=== PATIENT | female | born 1940 | race Caucasian/White ===

== ENCOUNTER 2016-10-26 08:13 | Inpatient (IN) ==
[2016-10-25 12:18] LABS: Basophils # (Auto) 0 K/mcL (0.0-0.3); Basophils % (Auto) 0.5 % (0.0-2.0); Eosinophils # (Auto) 0.1 K/mcL (0.0-0.7); Eosinophils % (Auto) 0.8 % (0.0-7.0); Granulocytes % (Auto) 69.5 % (38.0-78.0); Lymphocytes # (Auto) 1.8 K/mcL (1.5-4.8); Lymphocytes % (Auto) 24.2 % (15.5-49.0); Mean Cell Volume 92.3 fL (80.0-100.0); Mean Corpuscular HGB Conc 34.3 g/dL (31.0-36.0); Mean Corpuscular Hemoglobin 31.6 pg (26.0-34.0); Monocytes # (Auto) 0.4 K/mcL (0.1-0.9); Platelet Count 252 K/mcL (140-440); Red Cell Distribution Width 13.8 % (11.5-14.5)
[2016-10-25 12:35] LABS: Blood Urea Nitrogen 17 mg/dl (8-23)
[2016-10-25 13:05] LABS: Appearance,Urine CLEAR; Bilirubin,Urine NEG (NEG); Color,Urine YELLOW; Glucose,Urine (UA) NEGATIVE (NEG); Leukocyte Esterase,Urine NEG /uL (NEG); Nitrate,Urine NEG (NEG); Protein,Urine NEG (NEG); Specific Gravity,Urine 1.012 (1.000-1.035); Urine Blood NEG mg/dL (<0.03); Urobilinogen,Urine NEG (NEG)
[~2016-10-26 08:13] MED LIST: 0.9 % SODIUM CHLORIDE 250 ML IV SCH; PREGABALIN 75 MG CAPSULE PO SCH; ceFAZolin 1 GM VIAL IV SCH; oxyCODONE 10 MG TAB.ER.12H PO SCH
[2016-10-26] MEDS ORDERED: LIDOCAINE HCL/PF 100 MG/5 ML SYRINGE IV ONE (12:05)
[2016-10-26] MEDS ORDERED: PROPOFOL 200 MG/20 ML VIAL IV ONE (12:05)
[2016-10-26] MEDS ORDERED: ONDANSETRON 4 MG/2 ML VIAL IV ONE (12:05)
[2016-10-26] MEDS ORDERED: TRANEXAMIC ACID 1,000 MG/10 ML VIAL IV ONE ×2 (12:05→13:27)
[2016-10-26] MEDS ORDERED: KETAMINE 100 MG/ML ML IV ONE (12:05)
[2016-10-26] MEDS ORDERED: GENTAMICIN SULFATE 800 MG/20 ML VIAL IR ONE (12:28)
[2016-10-26] MEDS ORDERED: METHOCARBAMOL 1,000 MG/10 ML VIAL IV PRN (13:03)
[2016-10-26] MEDS ORDERED: diphenhydrAMINE 50 MG/ML VIAL IV PRN (13:03)
[2016-10-26] MEDS ORDERED: MEPERIDINE 25 MG/ML SYRINGE IV PRN (13:03)
[2016-10-26] MEDS ORDERED: IPRATROPIUM/ALBUTEROL 3 ML AMPUL.NEB NEB PRN (13:03)
[2016-10-26] MEDS ORDERED: ONDANSETRON 4 MG/2 ML VIAL IV PRN ×2 (13:03→13:27)
[2016-10-26] MEDS ORDERED: FLUMAZENIL 0.1 MG/ML ML IV PRN (13:03)
[2016-10-26] MEDS ORDERED: BENZOCAINE/MENTHOL 1 LOZENGE PO PRN ×2 (13:03→13:27)
[2016-10-26] MEDS ORDERED: HYDROmorphone 2 MG/ML SYRINGE IV PRN ×2 (13:03→13:27)
[2016-10-26] MEDS ORDERED: fentaNYL 100 MCG/2 ML VIAL IV PRN (13:03)
[2016-10-26] MEDS ORDERED: NALOXONE HCL 0.4 MG/ML VIAL IV PRN (13:03)
[2016-10-26] MEDS ORDERED: LACTATED RINGERS 250 ML IV PRN (13:03)
[2016-10-26] MEDS ORDERED: PROMETHAZINE 25 MG/ML VIAL IV PRN (13:03)
[2016-10-26] MEDS ORDERED: LACTATED RINGERS 1,000 ML IV SCH (13:15)
--- NOTE | 2016-10-26 13:26 | Brief Operative Note ---
Date of procedure: 10/26/16 Pre-op diagnosis: left hip oa Post-op diagnosis: same Procedure: left total hip arthroplasty Grafts/Implants: Yes Anesthesia: spinal Complications: none Surgeon: Glenn Santos Etl Data Architect: Josue Harvey Estimated blood loss (cc): 100 Specimens Removed/Pathology: none sent Condition: stable Disposition: PACU
[2016-10-26] MEDS ORDERED: BISACODYL 10 MG SUPP.RECT PR PRN (13:27)
[2016-10-26] MEDS ORDERED: MAGNESIUM HYDROXIDE 30 ML ORAL.SUSP PO PRN (13:27)
[2016-10-26] MEDS ORDERED: METHOCARBAMOL 750 MG TABLET PO PRN (13:27)
[2016-10-26] MEDS ORDERED: FLEETS ADULT ENEMA PR PRN (13:27)
[2016-10-26] MEDS ORDERED: ONDANSETRON ODT 4 MG TABLET SL PRN (13:27)
[2016-10-26] MEDS ORDERED: POLYETHYLENE GLYCOL 3350 17 GM PACKET PO PRN (13:27)
[2016-10-26] MEDS ORDERED: ePHEDrine 50 MG/ML AMPUL IV ONE (13:54)
--- NOTE | 2016-10-26 14:05 | Operative Note ---
DATE OF OPERATION: 10/26/2016 PREOPERATIVE DIAGNOSIS: Degenerative joint disease, left hip. POSTOPERATIVE DIGNOSIS: Degenerative joint disease, left hip. PROCEDURE: Left total hip arthroplasty. SURGEON: Layo Santos M.D. MATRIX SUPERVISOR SURGEON: Josue Harvey PA-C. ANESTHESIA: Spinal with LMA assist. ESTIMATED BLOOD LOSS: 100 mL. COMPLICATIONS: None noted. SPECIMENS REMOVED: None. DRAINS: None. IMPLANTS: DePuy [place] Hole Eliminator PS; DePuy Smithers Gription acetabular shell 48 mm; DePuy Smithers Altrx polyethylene acetabular liner 32 x 48; DePuy Tri-Lock BPS femoral stem size 2 standard; DePuy Biolox delta ceramic femoral head +5 mm, 32 diameter. INDICATIONS: The patient has had a longstanding history of worsening pain in the hip that has failed conservative treatment. Radiographs have confirmed advanced degenerative joint disease. After a long discussion about treatment options, the patient elected to proceed with a hip arthroplasty. The risks and benefits were discussed with the patient in detail including, but not limited to, the risks of anesthesia, problems with the heart or lungs related to anesthesia, infection, compromise or injury to the nerves and blood vessels, deep venous thrombosis, pulmonary embolism, pneumonia, continued pain after surgery, worsening pain or symptoms after surgery, swelling, loss of motion, instability, leg length discrepancy, and need for repeat surgery. DESCRIPTION OF PROCEDURE: The patient was seen in pre-anesthesia waiting room where all questions were answered and the correct side and site were identified and marked. The patient was then brought to the operating room and administered the anesthetic and given pre-operative antibiotics. A time-out was then called. The patient was placed in the lateral decubitus position with all prominences well-padded using the [place] frame and the extremity was prepped and draped in the usual sterile fashion. Anesthesia gave the patient 1 gm of tranexamic acid via an intravenous route. A standard posterior approach was made. We dissected through the skin and subcutaneous tissue to the deep fascia. The deep fascia was split in line with the incision and a Charnley retractor was placed. We exposed, tagged, and incised the short external rotators and piriformis tendon and retracted them posteriorly to help protect the sciatic nerve which was palpated throughout the case. We then performed a T-capsulotomy and tagged the capsule edges. Prior to dislocating the hip, we set a length and offset gauge from a Steinmann pin in the iliac wing to a joyce on the greater trochanter. The hip was then dislocated and a femoral neck osteotomy was performed to the pre-surgical templated level off the lesser trochanter. The head was removed and sized. We next turned our attention to the acetabulum. Retractors were placed for optimal visualization. A complete labral excision was performed. The capsule was preserved for later closure. We began reaming using anatomic landmarks with the DePuy Smithers acetabular system. We medialized the cup and reamed up to provide good fill and coverage of the trial. When the trial was stable and appropriately positioned with approximately 20 degrees of anteversion and 45 degrees of abduction, we impacted the DePuy Smithers cup and placed a cancellous screw in the posterior-superior quadrant. Osteophytes were removed from around the shell. We placed the trial liner and turned our attention to the femur. We placed retractors for visualization, internally rotated the femur, and established intramedullary access. We broached using the DePuy Tri-Lock stem to a stable platform medial, lateral, and rotationally with the appropriate version. We then performed a calcar reaming off the broach. Trials were then placed and optimized for leg length and stability. We used the leg length and offset guide to confirm our trials. Best stability, length, and offset characteristics were obtained with these sizes. We removed all trials and impacted the polyethylene acetabular liner in a standard fashion after a thorough irrigation. We then impacted the femoral stem to its broached location and placed the head. Final reduction was performed. Again, good stability, leg length, and offset characteristics were noted. We irrigated with three liters of antibiotic saline. We closed the capsule with #2 FiberWire. We placed a deep drain and closed the fascia with a combination of looped #0 Maxon and #0 Vicryl. We closed the subcutaneous tissue and skin in layers out to gil in the skin. A sterile pressure dressing and abduction wedge was applied. All needle and sponge counts were correct. The patient was transferred to the recovery room in stable condition. LOLA:jacques Job ID: [id number] Doc ID: [id number] Layo Santos MD
[2016-10-26] MEDS: 0.9 % SODIUM CHLORIDE 1,000 ML IV SCH ×3 (14:19→22:56)
[2016-10-26] MEDS: 0.9 % SODIUM CHLORIDE 10 ML SYRINGE IV SCH ×2 (14:19→20:47)
--- NOTE | 2016-10-26 14:50 | XRay Report ---
CLINICAL INFORMATION: Postop total hip prostheses COMPARISON: None. FINDINGS: Left total hip prostheses is in near-anatomic alignment with perhaps slightly excess anteversion and lateral canting of the acetabular component. Soft tissues over the surgical site noted no osseous abnormality IMPRESSION: Left hip prostheses as described Interpreted and Authenticated by: Glenn Chavira 10/26/16
[2016-10-26] MEDS: KETOROLAC 15 MG/ML VIAL IV PRN (15:37)
[2016-10-26] MEDS: HYDROcodone/APAP 10/325MG TABLET PO PRN ×2 (18:25→22:25)
[2016-10-26] MEDS: ceFAZolin 1 GM VIAL IV SCH (19:21)
[2016-10-26] MEDS: ASPIRIN 325 MG ENTERIC COATED TABLET PO SCH (20:46)
[2016-10-26] MEDS: LISINOPRIL 20 MG TABLET PO SCH (20:46)
[2016-10-26] MEDS: DOCUSATE SODIUM 100 MG CAPSULE PO SCH (20:46)
[2016-10-26] MEDS: SENNOSIDES 1 TABLET PO SCH (20:46)
[2016-10-27] MEDS: HYDROcodone/APAP 10/325MG TABLET PO PRN ×4 (02:25→20:15)
[2016-10-27] MEDS: ceFAZolin 1 GM VIAL IV SCH (03:07)
[2016-10-27] MEDS: 0.9 % SODIUM CHLORIDE 1,000 ML IV SCH (04:30)
[2016-10-27] MEDS: 0.9 % SODIUM CHLORIDE 10 ML SYRINGE IV SCH ×3 (04:31→21:20)
--- NOTE | 2016-10-27 06:34 | Orthopedic Progress Note ---
Subjective Patient information: Note initiated : 10/27/16 at 6:33 am Service Date, if different from initiated Date: [] Patient: Keisha Bailey 75 y/o F admitted on 10/26/16 for Left Total Hip Arthroplasty. Chief Complaint: [] Interval history: doing ok. pain under control Objective Vital signs: Vital Signs Temp Pulse Resp BP Pulse Ox 10/27/16 04:54 95/60 10/27/16 03:26 98.5 F 77 14 98/45 93 10/27/16 00:00 99.2 F H 71 14 92/55 92 10/26/16 19:32 98.1 F 74 14 153/83 95 10/26/16 17:30 68 148/74 97 10/26/16 16:30 72 136/62 92 10/26/16 16:00 97.4 F 71 14 151/67 93 10/26/16 15:30 96.7 F L 74 16 130/67 96 10/26/16 15:15 96.5 F L 73 127/70 95 10/26/16 15:00 96.5 F L 69 14 141/70 10/26/16 14:45 96.3 F L 65 12 130/63 96 10/26/16 14:19 97.6 F 75 16 134/54 100 10/26/16 14:04 97.4 F 79 16 125/55 96 10/26/16 13:59 97.6 F 75 16 127/55 100 10/26/16 13:54 97.6 F 75 16 111/56 100 10/26/16 13:49 97.5 F 76 16 88/54 100 10/26/16 13:44 97.2 F 75 16 81/40 100 10/26/16 13:39 97.2 F 81 16 116/48 98 10/26/16 08:13 97.2 F 66 18 170/70 97 Intake and Output 10/26/16 10/27/16 10/27/16 21:59 05:59 13:59 Intake Total 2900 / 2900 1450 / 1450 Output Total 775 / 775 600 / 600 Balance 2125 / 2125 850 / 850 Intake: IV 1000 / 1000 Sodium Chloride 0.9% 1, 1000 / 1000 000 ml @ 125 mls/hr IV . Q8H [facility] Rx#:[id number] Oral 600 / 600 450 / 450 IV - Manual Only 2300 / 2300 Output: Urine Catheter Amount 775 / 775 200 / 200 Void Amount 400 / 400 Other: Meal Dinner Percent of Meal Consumed 100% Feeding Ability Independent Weight 130 lb 5 oz Intake & Output: Intake & Output 10/26/16 10/27/16 10/27/16 21:59 05:59 13:59 Intake Total 2900 / 2900 1450 / 1450 Output Total 775 / 775 600 / 600 Balance 2125 / 2125 850 / 850 Weight 130 lb 5 oz Intake: IV 1000 / 1000 Sodium Chloride 0.9% 1, 1000 / 1000 000 ml @ 125 mls/hr IV . Q8H [facility] Rx#:[id number] Oral 600 / 600 450 / 450 IV - Manual Only 2300 / 2300 Output: Urine Catheter Amount 775 / 775 200 / 200 Void Amount 400 / 400 Other: Meal Dinner Percent of Meal Consumed 100% Feeding Ability Independent Incision: Yes healing Incision clean and dry: Yes Dressing: Yes clean, Yes dry, Yes intact Weight bearing status: full Neurological exam IM: Yes alert, Yes normal gait, Yes oriented X3, Yes motor sensory intact, Yes neurovascular intact Extremities exam IM: No calf tenderness, Yes Foot pink and warm, Yes neurovascular intact - Labs CBC & BMP: 10/25/16 10:34 10/25/16 10:34 Labs: Orthopedic Labs 10/25/16 10:34 PT 12.9 INR 1.0 10/27/16 10/25/16 05:37 10:34 Hgb Pending 13.3 Hct Pending 38.7 Assessment and Plan (1) Hip osteoarthritis pod 1 s/p hugo pain control dvt prophylaxis PT d/c planning - home tomorrow if improving Status: Acute
--- NOTE | 2016-10-27 06:37 | Discharge Summary ---
Ortho Discharge - [facility] - Patient Instructions Diet: Regular Diet Activity: ambulate with assistive device, weight bearing as tolerated Total Hip Protocol: Follow activity instructions as provided by Physical Therapy. Dressing Care: May shower in 2 days - Problem Maintenance (1) Hip osteoarthritis Status: Acute - Follow Up Plan Disposition: Home, Self-Care Prognosis: Good Rehab Potential: Good I certify that the patient requires SNF services: No Overall status at discharge: patient is progressing back to baseline - Orders For Discharge Prescriptions: Aspirin [Ecotrin] 325 mg PO BID #60 Docusate Sodium [Colace] 100 mg PO BID #60 capsule HYDROcodone/APAP 10/325MG [[place] 10/325Mg] 1 - 2 tab PO Q4HP PRN #60 tablet PRN Reason: Pain
[2016-10-27] MEDS: DOCUSATE SODIUM 100 MG CAPSULE PO SCH ×2 (08:58→21:20)
[2016-10-27] MEDS: ASPIRIN 325 MG ENTERIC COATED TABLET PO SCH ×2 (08:58→21:20)
[2016-10-27] MEDS: KETOROLAC 15 MG/ML VIAL IV PRN (08:59)
[2016-10-27] MEDS: SENNOSIDES 1 TABLET PO SCH (21:20)
[2016-10-27] MEDS: LISINOPRIL 20 MG TABLET PO SCH (21:20)
[2016-10-28] MEDS: HYDROcodone/APAP 10/325MG TABLET PO PRN ×4 (05:11→18:41)
[2016-10-28] MEDS: 0.9 % SODIUM CHLORIDE 10 ML SYRINGE IV SCH ×4 (05:12→21:17)
--- NOTE | 2016-10-28 05:38 | Orthopedic Progress Note ---
Subjective Patient information: Note initiated : 10/28/16 at 5:36 am Service Date, if different from initiated Date: [] Patient: Keisha Bailey 75 y/o F admitted on 10/26/16 for Left Total Hip Arthroplasty. Chief Complaint: [] Interval history: doing ok. mobilizing Objective Vital signs: Vital Signs Temp Pulse Pulse Resp BP Pulse Ox 10/28/16 03:45 98.8 F 76 22 97/67 91 10/27/16 23:31 99.1 F H 82 22 95/60 91 10/27/16 19:51 98.7 F 79 22 96/48 93 10/27/16 16:00 99.3 F H 18 91/53 90 10/27/16 11:44 98.0 F 18 101/46 90 10/27/16 07:18 74 97 10/27/16 06:57 99.3 F H 18 97/63 91 Intake and Output 10/27/16 10/27/16 10/28/16 13:59 21:59 05:59 Intake Total 740 / 740 350 / 350 1100 / 1100 Output Total 500 / 500 775 / 775 725 / 725 Balance 240 / 240 -425 / -425 375 / 375 Intake: Oral 740 / 740 350 / 350 1100 / 1100 Output: Urine Catheter Amount 500 / 500 775 / 775 375 / 375 Void Amount 350 / 350 Uretheral (Lewis) 350 / 350 Other: Meal Breakfast Dinner Percent of Meal Consumed 100% 100% Weight 131 lb Patient Weight 10/28/16 05:59 Weight 131 lb Intake & Output: Intake & Output 10/27/16 10/27/16 10/28/16 13:59 21:59 05:59 Intake Total 740 / 740 350 / 350 1100 / 1100 Output Total 500 / 500 775 / 775 725 / 725 Balance 240 / 240 -425 / -425 375 / 375 Weight 131 lb Intake: Oral 740 / 740 350 / 350 1100 / 1100 Output: Urine Catheter Amount 500 / 500 775 / 775 375 / 375 Void Amount 350 / 350 Uretheral (Lewis) 350 / 350 Other: Meal Breakfast Dinner Percent of Meal Consumed 100% 100% Incision: Yes healing Incision clean and dry: Yes Dressing: Yes clean, Yes dry, Yes intact Weight bearing status: full Neurological exam IM: Yes abnormal gait, Yes alert, Yes oriented X3, Yes motor sensory intact, Yes neurovascular intact Extremities exam IM: No calf tenderness, Yes Foot pink and warm, Yes neurovascular intact - Labs CBC & BMP: 10/27/16 05:37 10/25/16 10:34 Labs: Orthopedic Labs 10/25/16 10:34 PT 12.9 INR 1.0 10/28/16 10/27/16 10/25/16 04:44 05:37 10:34 Hgb Pending 9.9 L 13.3 Hct Pending 29.1 L 38.7 Assessment and Plan (1) Hip osteoarthritis pod 2 s/p hugo pain control dvt prophylaxis PT d/c planning - home today if passes pt Status: Acute
[2016-10-28] MEDS: ASPIRIN 325 MG ENTERIC COATED TABLET PO SCH ×2 (08:40→21:16)
[2016-10-28] MEDS: DOCUSATE SODIUM 100 MG CAPSULE PO SCH ×2 (08:40→21:16)
[2016-10-28] MEDS: KETOROLAC 15 MG/ML VIAL IV PRN (10:41)
[2016-10-28] MEDS: LISINOPRIL 20 MG TABLET PO SCH (21:16)
[2016-10-28] MEDS: SENNOSIDES 1 TABLET PO SCH (21:16)
--- NOTE | 2016-10-29 06:40 | Orthopedic Progress Note ---
Subjective Patient information: Note initiated : 10/29/16 at 6:39 am Service Date, if different from initiated Date: [] Patient: BenjimanKeisha 75 y/o F admitted on 10/26/16 for Left Total Hip Arthroplasty. Chief Complaint: [] Interval history: doing much better today Objective Vital signs: Vital Signs Temp Pulse Resp BP Pulse Ox 10/29/16 04:00 97.3 F 71 20 102/55 91 10/29/16 00:00 97.6 F 75 16 92/61 91 10/28/16 20:00 98.9 F 82 16 109/82 91 10/28/16 15:59 98.5 F 18 98/73 91 10/28/16 11:03 98.9 F 87 20 98/70 90 10/28/16 08:00 76 10/28/16 07:21 98.4 F 18 95/59 Intake and Output 10/28/16 10/29/16 10/29/16 21:59 05:59 13:59 Intake Total 1360 / 1360 400 / 400 Output Total 800 / 800 450 / 450 Balance 560 / 560 -50 / -50 Intake: Oral 1360 / 1360 400 / 400 Output: Void Amount 800 / 800 450 / 450 Other: Weight 135 lb Intake & Output: Intake & Output 10/28/16 10/29/16 10/29/16 21:59 05:59 13:59 Intake Total 1360 / 1360 400 / 400 Output Total 800 / 800 450 / 450 Balance 560 / 560 -50 / -50 Weight 135 lb Intake: Oral 1360 / 1360 400 / 400 Output: Void Amount 800 / 800 450 / 450 Incision: Yes healing Incision clean and dry: Yes Dressing: Yes clean, Yes dry, Yes intact Weight bearing status: full Neurological exam IM: Yes alert, Yes normal gait, Yes oriented X3, Yes neurovascular intact Extremities exam IM: No calf tenderness, Yes Foot pink and warm, Yes neurovascular intact - Labs CBC & BMP: 10/29/16 05:12 10/25/16 10:34 Labs: Orthopedic Labs 10/25/16 10:34 PT 12.9 INR 1.0 10/29/16 10/28/16 10/27/16 05:12 04:44 05:37 Hgb 9.7 L 9.9 L 9.9 L Hct 28.6 L 29.1 L 29.1 L 10/25/16 10:34 Hgb 13.3 Hct 38.7 Assessment and Plan (1) Hip osteoarthritis pod 3 s/p hugo pain control dvt prophylaxis PT d/c planning - home today Status: Acute
[2016-10-29] MEDS: HYDROcodone/APAP 10/325MG TABLET PO PRN ×2 (09:19→11:57)
[2016-10-29] MEDS: ASPIRIN 325 MG ENTERIC COATED TABLET PO SCH (09:20)
[2016-10-29] MEDS: DOCUSATE SODIUM 100 MG CAPSULE PO SCH (09:20)
[2016-10-29] MEDS: 0.9 % SODIUM CHLORIDE 10 ML SYRINGE IV SCH (09:24)
== END 2016-10-29 12:05 | disposition home or self-care (01) | DRG 470 ==
LOC: MEDSUR 08:13
PROVIDERS: ADMIT Orthopaedic Surgery Sports Medicine; ATTEND Orthopaedic Surgery Sports Medicine